=== PATIENT | female | born 1985 | race Caucasian/White ===

== ENCOUNTER 2016-09-27 20:27 | Emergency (ER) | payer MEDICAID ==
[~2016-09-27] VITALS: Ht 157.5 cm; Wt 123.4 kg
[~2016-09-27 20:27] MED LIST: ALDOMET500 M1 PO; PRENATAL VITAMI1 T10 PO
--- NOTE | 2016-09-27 20:32 | NUR ---
AMBULATED TO ER BED 3
[2016-09-27 20:37] VITALS: BP 149/96
--- NOTE | 2016-09-27 20:53 | NUR ---
PATIENT PRESENTS TO ED WITH RLQ ABD PAIN . PT STATES PAIN HAS BEEN BURNING AND CONSTANT X3DAYS . DENIES N/V/D; SKIN IS PINK/WARM/DRY; AAOX4 WITH EVEN AND STEADY GAIT; LUNGS CLEAR BL; HR TACHYCARDIC AND EVEN; PT DENIES ANY FEVER, CP, SOB, OR COUGH AT THIS TIME; PATIENT STATES PAIN OF 10/10 AT THIS TIME; VSS; PATIENT POSITIONED FOR COMFORT; HOB ELEVATED; BEDRAILS UP X2; BED DOWN. ER MD MADE AWARE OF PT STATUS.
[2016-09-27] MEDS ORDERED: NACL 0.9% 1,000 ML IV ONE (20:55)
[2016-09-27] MEDS ORDERED: ONDANSETRON 4 MG/2 ML VIAL IVP ONE (20:55)
[2016-09-27] MEDS ORDERED: MORPHINE SULFATE 4 MG/ML SYR IVP ONE (20:55)
[2016-09-27] MEDS ORDERED: KETOROLAC 30 MG/ML VIAL IVP ONE (22:05)
--- NOTE | 2016-09-27 22:36 | NUR ---
IV removed, catheter intact and site benign. Applied folded 4x4 gauze and tape to stop bleeding. Patient discharged with v/s stable. Written and verbal after care instructions given and explained. Patient alert, oriented and verbalized understanding of instructions. Ambulatory with steady gait. All questions addressed prior to discharge. ID band removed. Patient advised to follow up with PMD. Rx of NORCO AND NAPROSYN given. Patient educated on indication of medication including possible reaction and side effects. Opportunity to ask questions provided and answered.
[2016-09-27 22:37] VITALS: BP 149/96
== END 2016-09-27 22:37 | disposition home or self-care (01) ==
LOC: MED 20:27
DX: R10.32 Left lower quadrant pain (principal); I10 Essential (primary) hypertension; Z88.0 Allergy status to penicillin; Z79.899 Other long term (current) drug therapy; Z98.51 Tubal ligation status
CPT/HCPCS: 36415; 74176; 80053; 81002; 81025; 83690; 85025; 96361; 96374; 96375; 99285; J1885; J2270; J2405; J7030

== ENCOUNTER 2018-11-21 20:55 | Emergency (ER) | payer SELFPAY ==
[~2018-11-21] VITALS: Ht 157.5 cm; Wt 124.7 kg
[~2018-11-21 20:55] MED LIST changes: -ALDOMET500 M1 PO; +METH500T6 PO; +PREN-385 PO; -PRENATAL VITAMI1 T10 PO
[2018-11-21 21:08] VITALS: BP 183/119
--- NOTE | 2018-11-21 21:13 | NUR ---
PT AMBULATED TO THE RESTROOM AND THEN BACK TO [facility]
--- NOTE | 2018-11-21 22:12 | NUR ---
PT AMBULATORY TO BED 8.
--- NOTE | 2018-11-21 22:35 | NUR ---
33 y/o F presented to ED with c/o dizziness x3 days. AAOx4. Per pt, "today the dizziness was worse. i can barley stand up for long." experienced n/v today, appromixately 10 episodes of vomitting today. Unable to keep food down. c/o intermintent double vision. denies headache or lightheadness. bedrails x2 up. ERMD notifed. will continue to monitor. Addendum: 11/21/18 at 2306 by [facility] 33 y/o F presented to ED with c/o dizziness x3 days. AAOx4. Per pt, "today the dizziness was worse. i can barley stand up for long." experienced n/v today, appromixately 10 episodes of vomitting today. Unable to keep food down. c/o intermintent double vision. denies headache or lightheadness. forehead and mouth pain, 10/10 pain. mucous membranes paink and moist. bedrails x2 up. ERMD notifed. will continue to monitor.
[2018-11-21] MEDS ORDERED: ONDANSETRON 4 MG/2 ML VIAL IVP ONE (23:05)
[2018-11-21] MEDS ORDERED: NACL 0.9% 1,000 ML IV ONE (23:05)
[2018-11-21 23:21] LABS: BASOPHILS # (AUTO) 0.1 K/uL (0.00-0.22); BASOPHILS % (AUTO) 0.7 % (0.0-2.0); EOSINOPHILS # (AUTO) 0.1 K/uL (0-0.4); EOSINOPHILS % (AUTO) 0.7 % (0.0-4.0); HEMOGLOBIN 13.9 g/dL (12.0-16.0); LYMPHOCYTES # (AUTO) 3.1 K/uL (2.5-16.5); MEAN CORPUSCULAR HEMOGLOBIN 31 pg (27-31); MEAN CORPUSCULAR HGB CONC 34 g/dL (33-37); MEAN CORPUSCULAR VOLUME 91.2 fL (80-94); MONOCYTES # (AUTO) 0.9 K/uL (0.8-1.0); MONOCYTES % (AUTO) 8.4 % (1.7-9.3); NEUTROPHILS # (AUTO) 6.3 K/uL (1.8-7.7); NEUTROPHILS % (AUTO) 60.2 % (42.2-75.2); PLATELET COUNT (AUTO) 320 K/uL (140-450); RED CELL DISTRIBUTION WIDTH 12.7 % (11.6-13.7); WHITE BLOOD COUNT (AUTO) 10.4 K/uL (4.8-10.8)
[2018-11-21 23:26] LABS: APPEARANCE,URINE CLEAR (CLEAR); BILIRUBIN,URINE NEGATIVE (NEGATIVE); BLOOD, URINE NEGATIVE (NEGATIVE); COLOR,URINE YELLOW (YELLOW); LEUKOCYTE ESTERASE ,URINE NEGATIVE (NEGATIVE); NITRITE, URINE NEGATIVE (NEGATIVE); PH,URINE 8.5 (5.0-9.0); UGLUCOSE NEGATIVE (NEGATIVE)
[2018-11-21 23:33] LABS: ANION GAP 10.4 (8-16); CARBON DIOXIDE 28.2 mmol/L (21-32); CREATININE 0.6 mg/dL (0.6-1.3); POTASSIUM 3.6 mmol/L (3.5-5.1)
[2018-11-21 23:40] LABS: ALBUMIN 3.5 g/dL (3.4-5.0); TOTAL BILIRUBIN 0.5 mg/dL (0.0-1.0)
--- NOTE | 2018-11-22 00:11 | NUR ---
Pt asleep. Visible chest rise and fall. Bedrails x2 up. Will continue to monitor.
[2018-11-22] MEDS ORDERED: KETOROLAC 30 MG/ML VIAL IVP ONE (00:20)
[2018-11-22 01:41] VITALS: BP 128/82
--- NOTE | 2018-11-22 01:41 | NUR ---
Patient discharged with v/s stable. Written and verbal after care instructions given and explained. Patient alert, oriented and verbalized understanding of instructions. Ambulatory with steady gait. All questions addressed prior to discharge. ID band removed. Patient advised to follow up with PMD. Rx of Zofran and Ibuprofen given. Patient educated on indication of medication including possible reaction and side effects. Opportunity to ask questions provided and answered.
== END 2018-11-22 01:41 | disposition home or self-care (01) ==
LOC: MED 20:55
DX: E86.0 Dehydration (principal); M25.519 Pain in unspecified shoulder; R51 Headache; H57.10 Ocular pain, unspecified eye; M54.2 Cervicalgia; E11.9 Type 2 diabetes mellitus without complications; I10 Essential (primary) hypertension; E78.5 Hyperlipidemia, unspecified; Z79.899 Other long term (current) drug therapy; Z88.0 Allergy status to penicillin
CPT/HCPCS: 36415; 80053; 81003; 81025; 85025; 87804; 96361; 96374; 96375; 99283; J1885; J2405

== ENCOUNTER 2021-03-06 18:47 | Emergency (ER) | payer MEDICAID ==
[~2021-03-06] VITALS: Ht 157.5 cm; Wt 130.8 kg
[2021-03-06 18:57] VITALS: BP 157/102
--- NOTE | 2021-03-06 21:15 | NUR ---
TAKEN TO BED #4
[2021-03-06] MEDS ORDERED: MECLIZINE 25 MG TAB PO ONE (21:25)
--- NOTE | 2021-03-06 21:28 | NUR ---
X-Ray at bedside.
--- NOTE | 2021-03-06 22:00 | NUR ---
C/O HIGH BP, HEADACHE, DIZZINESS, N/V , FEVER, CHILLS X 3 DAYS. Ran OUT OF MED FOR HTN X 1 WEEK. PMH: HTN, CHRONIC BACK PAIN
[2021-03-06 22:01] LABS: BASOPHILS # (AUTO) 0.1 K/uL (0.00-0.22); BASOPHILS % (AUTO) 0.5 % (0.0-2.0); HEMATOCRIT 39.1 % (36-48); HEMOGLOBIN 13.4 g/dL (12.0-16.0); LYMPHOCYTES # (AUTO) 1.7 K/uL (2.5-16.5); LYMPHOCYTES % (AUTO) 15.2 % (20.5-51.1); MEAN CORPUSCULAR HEMOGLOBIN 31 pg (27-31); MEAN CORPUSCULAR HGB CONC 34 g/dL (33-37); MEAN CORPUSCULAR VOLUME 90.1 fL (80-94); MONOCYTES # (AUTO) 1.2 K/uL (0.8-1.0); MONOCYTES % (AUTO) 10.3 % (1.7-9.3); NEUTROPHILS # (AUTO) 8.4 K/uL (1.8-7.7); PLATELET COUNT (AUTO) 289 K/uL (140-450); RED BLOOD CELL COUNT(AUTO) 4.34 MIL/uL (4.20-5.40); RED CELL DISTRIBUTION WIDTH 12.7 % (11.6-13.7); WHITE BLOOD COUNT (AUTO) 11.3 K/uL (4.8-10.8)
--- NOTE | 2021-03-06 22:02 | NUR ---
taken to ct.
[2021-03-06 22:23] LABS: ANION GAP 18.7 (8-16); CARBON DIOXIDE 22.2 mmol/L (21-32); CREATININE 0.9 mg/dL (0.6-1.3); POTASSIUM 3.9 mmol/L (3.5-5.1)
[2021-03-06 22:36] LABS: PROTHROMBIN TIME 10.4 secs (10.8-13.4); TOTAL BILIRUBIN 0.5 mg/dL (0.0-1.0)
--- NOTE | 2021-03-06 23:35 | NUR ---
Dr. Ricci examining patient.
--- NOTE | 2021-03-06 23:46 | NUR ---
PT IS AWAKE AND ALERT, SITTING UP IN BED. ALL NEEDS MET AT THIS TIME. BED LOCKED IN LOWEST POSITION, SIDE RAILS X2.
[2021-03-06] MEDS ORDERED: NACL 0.9% 1,000 ML IV ONE (23:55)
[2021-03-06] MEDS ORDERED: PROCHLORPERAZINE 10 MG/2 ML VIAL IVP ONE (23:55)
[2021-03-07 00:11] LABS: APPEARANCE,URINE CLEAR (CLEAR); BILIRUBIN,URINE NEGATIVE (NEGATIVE); BLOOD, URINE 3+ (NEGATIVE); COLOR,URINE YELLOW (YELLOW); LEUKOCYTE ESTERASE ,URINE NEGATIVE (NEGATIVE); NITRITE, URINE NEGATIVE (NEGATIVE); UGLUCOSE NEGATIVE (NEGATIVE)
[2021-03-07 00:14] LABS: WBC,URINE 0-5 /HPF (0-5)
--- NOTE | 2021-03-07 00:34 | NUR ---
PT IS SLEEPING, EQUAL RISE AND FALL OF CHEST WALL. OPENS EYES TO SOUND. PT IN STABLE CONDITION. SIDE RAILS X1, BED LOCKED IN LOWEST POSITION.
--- NOTE | 2021-03-07 01:30 | NUR ---
Dr. Ricci examining patient.
[2021-03-07] MEDS ORDERED: MECL-303 PO (01:38)
[2021-03-07] MEDS ORDERED: ONDA-24 PO (01:38)
[2021-03-07 01:52] VITALS: BP 174/111
--- NOTE | 2021-03-07 01:52 | NUR ---
Patient discharged with v/s stable. Written and verbal after care instructions given and explained. Patient alert, oriented and verbalized understanding of instructions. Ambulatory with steady gait. All questions addressed prior to discharge. ID band removed. Patient advised to follow up with PMD. Rx of ZOFRAN AND MECLIZINE given. Patient educated on indication of medication including possible reaction and side effects. Opportunity to ask questions provided and answered.
== END 2021-03-07 01:52 | disposition home or self-care (01) ==
LOC: MED 18:47
DX: R42 Dizziness and giddiness (principal); R11.2 Nausea with vomiting, unspecified; R50.9 Fever, unspecified
CPT/HCPCS: 36415; 70450; 71045; 80053; 81001; 81025; 83605; 84484; 85025; 85610; 85730; 86886; 86900; 86901; 87040; 87086; 93005; 96361; 96374; 99285; J0780; J7030; J8597

== ENCOUNTER 2022-01-25 02:21 | Emergency (ER) | payer MEDICAID ==
[~2022-01-25] VITALS: Ht 157.5 cm; Wt 125.2 kg
[~2022-01-25 02:21] MED LIST changes: +MECL-303 PO; +ONDA-188 PO
[2022-01-25 02:34] VITALS: BP 166/98
--- NOTE | 2022-01-25 02:37 | NUR ---
TAKEN TO BED 12.
--- NOTE | 2022-01-25 03:04 | NUR ---
36 Y/O FEMALE BIBS FROM HOME, C/O LEFT ARM PAIN AND PARASTHESIA RADIATING FROM NECK TO FINGERS S/P TC YESTERDAY. PT COMPLAINS OF 10/10 PAIN, NO OBVIOUS TRAUMA, REDNESS, BRUISING, OR DEFORMITY. PT DENIES KO OR NECK/BACK PAIN. LIMITED ROM DUE TO PAIN, CMS INTACT. HX: DM, HTN ALL: PCN
[2022-01-25] MEDS ORDERED: IBUPROFEN 800 MG TAB PO ONE (03:10)
--- NOTE | 2022-01-25 03:17 | NUR ---
PT TAKEN TO XRAY
[2022-01-25 05:47] VITALS: BP 148/94
--- NOTE | 2022-01-25 05:49 | NUR ---
Patient discharged with v/s stable. Written and verbal after care instructions given and explained. Patient verbalized understanding. Ambulatory with steady gait. All questions addressed prior to discharge. Advised to follow up with PMD. VSS, A/OX4, UNLABORED BREATHING, AND CALM DEMEANOR.
== END 2022-01-25 05:45 | disposition home or self-care (01) ==
LOC: MED 02:21
DX: S09.90XA Unspecified injury of head, initial encounter (principal); M54.2 Cervicalgia; M79.662 Pain in left lower leg; I10 Essential (primary) hypertension; E66.01 Morbid (severe) obesity due to excess calories; Z88.0 Allergy status to penicillin; V43.92XA Unspecified car occupant injured in collision with other type car in traffic accident, initial encounter; Y93.89 Activity, other specified; Y92.89 Other specified places as the place of occurrence of the external cause; Y99.8 Other external cause status
CPT/HCPCS: 70450; 72125; 73030; 73060; 73090; 73130; 99284

== ENCOUNTER 2022-10-13 11:05 | Emergency (ER) | payer MEDICAID ==
[~2022-10-13] VITALS: Ht 157.5 cm; Wt 124.7 kg
[2022-10-13 11:07] VITALS: BP 171/89
--- NOTE | 2022-10-13 11:48 | NUR ---
37/F PRESENTS TO ED WITH C/O MID TO LOWER BACK PAIN. PATIENT REPORTS SHE SUFFERS FROM CHRONIC BACK PAIN FROM AN INJURY IN 2019 AND STATES PAIN HAS BEEN WORSENING SINCE YESTERDAY. PATIENT DENIES RECENT NEW INJURY OR TRAUMA, REPORTS SHE TOOK 500MG NAPROSYN WITH NO RELIEF OF SYMPTOMS.
[2022-10-13] MEDS ORDERED: methocarbamoL 500 MG TAB PO STA (12:12)
[2022-10-13] MEDS ORDERED: predniSONE 20 MG TAB PO ONE (12:15)
[2022-10-13] MEDS ORDERED: LIDOCAINE 5% 1 EA PATCH TP SCH (12:15)
[2022-10-13] MEDS ORDERED: ACETAMINOPHEN EXTRA STRENGTH 500 MG TAB PO ONE (12:15)
[2022-10-13] MEDS ORDERED: KETOROLAC 30 MG/ML VIAL IM ONE (12:15)
--- NOTE | 2022-10-13 12:25 | NUR ---
PRIOR TO MED ADMINISTRATION PATIENT STATED SHE CAN ARRANGE A RIDE HOME.
[2022-10-13] MEDS ORDERED: MORPHINE SULFATE 10 MG/ML VIAL IM ONE (13:35)
[2022-10-13] MEDS ORDERED: GABAPENTIN 300 MG CAP PO ONE (13:35)
[2022-10-13] MEDS ORDERED: METH-1681 PO (14:44)
[2022-10-13] MEDS ORDERED: NAPR-54 PO (14:44)
[2022-10-13] MEDS ORDERED: GABA300C PO (14:44)
[2022-10-13] MEDS ORDERED: PRED20TA5 PO (14:44)
[2022-10-13] MEDS ORDERED: ACET-5629 PO (14:44)
[2022-10-13 14:57] VITALS: BP 155/89
--- NOTE | 2022-10-13 15:08 | NUR ---
Patient discharged with v/s stable. Written and verbal after care instructions FOR BACK EXERCISES AND CHRONIC BACK PAIN given and explained. Patient alert, oriented and verbalized understanding of instructions. Ambulatory with steady gait. All questions addressed prior to discharge. ID band removed. Patient advised to follow up with PMD. Rx of OXYCODONE HCL, GABAPENTIN, ROBAXIN, NAPROXEN AND DELTASONE given. Opportunity to ask questions provided and answered.
== END 2022-10-13 15:08 | disposition home or self-care (01) ==
LOC: MED 11:05
DX: M54.50 Low back pain, unspecified (principal); M54.31 Sciatica, right side; I10 Essential (primary) hypertension; Z88.0 Allergy status to penicillin; Z79.899 Other long term (current) drug therapy
CPT/HCPCS: 81025; 96372; 99284; J1885; J2270; J7512